=== PATIENT | male | born 1995 | race Caucasian/White ===

== ENCOUNTER 2020-05-10 13:36 | Emergency (ER) | payer OTHER ==
[2020-05-10 14:20] LABS: Absolute Lymphocytes (CBC) 1.7 K/uL (0.7-4.9); Basophils % 0.5 % (0-1.3); Hematocrit 42.6 % (39.6-49.0); Lymphocytes % 38.6 % (15.3-44.8); MPV 8.7 fL (7.6-11.3); RBC Red Blood Cell Count 4.78 M/uL (4.33-5.43)
[2020-05-10 14:21] LABS: Protime INR 1.1
[2020-05-10 14:38] LABS: ALT/SGPT 33 U/L (12-78); AST/SGOT 19 U/L (15-37); Albumin 4.2 g/dL (3.4-5.0); Alkaline Phosphatase 46 U/L (45-117); BUN Blood Urea Nitrogen 22 mg/dL (7-18); Bicarbonate 30 mmol/L (21-32); Bilirubin Direct 0.2 mg/dL (0-0.2); Bilirubin Total 0.6 mg/dL (0.2-1.0); Glucose Level 108 mg/dL (74-106); Potassium 3.5 mmol/L (3.5-5.1); Protein, Total 7.6 g/dL (6.4-8.2); Sodium Level 142 mmol/L (136-145)
[2020-05-10 14:57] LABS: Barbiturates NEGATIVE (NEGATIVE); Benzodiazepines POSITIVE (NEGATIVE); Cocaine NEGATIVE (NEGATIVE); METHAMPHETAM NEGATIVE (NEGATIVE); Methadone NEGATIVE (NEGATIVE); Opiates NEGATIVE (NEGATIVE); Phencyclidine NEGATIVE (NEGATIVE); THC Cannibis NEGATIVE (NEGATIVE)
[2020-05-10 15:27] LABS: Urine Blood NEGATIVE (NEG); Urine Glucose NEGATIVE (NEG); Urine Protein NEGATIVE (NEG); Urine pH 8.5 (5.0-7.0)
--- NOTE | 2020-05-10 18:58 | ER ---
Nurse's Notes [facility] Name: Praneeth Urbina Age: 24 yrs Sex: Male : 1995 Arrival Date: 05/10/2020 Time: 13:37 Bed 4 Private MD: Diagnosis: K2 and xanax overdose Presentation: 05/10 13:37 Chief complaint: EMS states: Inmate from [facility], reportedly ingested 10 Xanax and ph 1/2 oz of K2/synthetic marijuana , denies SI, reports that he took them because he got caught w/ them, BP 110/68, HR 94, T 97.8, pt drowsy upon arrival, denies nausea or pain. Coronavirus screen: Client denies travel out of the [place] in the last 14 days. At this time, the client does not indicate any symptoms associated with coronavirus-19. Ebola Screen: No symptoms or risks identified at this time. Initial Sepsis Screen: Does the patient meet any 2 criteria? No. Patient's initial sepsis screen is negative. Does the patient have a suspected source of infection? No. Patient's initial sepsis screen is negative. Risk Assessment: Do you want to hurt yourself or someone else? Patient reports no desire to harm self or others. Onset of symptoms. 13:37 Method Of Arrival: EMS: [facility] ph 13:37 Acuity: MERLE 2 ph Historical: - Allergies: 13:43 Iodine; tw2 - Home Meds: 13:43 None [Active]; tw2 - PMHx: 13:43 None; tw2 - PSHx: 13:43 None; tw2 - Immunization history:: Adult Immunizations. - Social history:: Smoking status: . Screenin:43 Abuse screen: Denies threats or abuse. Nutritional screening: No deficits noted. tw2 Tuberculosis screening: No symptoms or risk factors identified. Fall Risk None identified. Assessment: 13:35 General: Appears in no apparent distress. comfortable, slender, Behavior is calm, ph cooperative, appropriate for age, drowsy. Pain: Denies pain. Neuro: Level of Consciousness is awake, alert, obeys commands, Oriented to person, place, time, situation. Cardiovascular: Capillary refill < 3 seconds in bilateral fingers Patient's skin is warm and dry. Respiratory: Airway is patent Respiratory effort is even, unlabored. GI: Patient currently denies abdominal pain, nausea, vomiting. Derm: Skin is intact, is healthy with good turgor, Skin is pink, warm \T\ dry. Musculoskeletal: Circulation, motion, and sensation intact. Range of motion: intact in all extremities. 13:48 Reassessment: spoke with Poison control case# [id number], supportive care and monitor 4-6 tw2 hours or until back to baseline, standard overdose labs with kidney function, lft, ekg, and seizure precautions for the k2 ingestion, provider notified. 14:35 Reassessment: Patient appears in no apparent distress at this time. No changes from tw2 previously documented assessment. Patient and/or family updated on plan of care and expected duration. Pain level reassessed. 15:22 Reassessment: Patient appears in no apparent distress at this time. No changes from tw2 previously documented assessment. Patient and/or family updated on plan of care and expected duration. Pain level reassessed. 16:30 Reassessment: Patient appears in no apparent distress at this time. No changes from tw2 previously documented assessment. Patient and/or family updated on plan of care and expected duration. Pain level reassessed. 17:40 Reassessment: Patient appears in no apparent distress at this time. No changes from tw2 previously documented assessment. Patient and/or family updated on plan of care and expected duration. Pain level reassessed. 19:40 Reassessment: Patient appears in no apparent distress at this time. Patient and/or mg2 family updated on plan of care and expected duration. Pain level reassessed. Patient is alert, oriented x 3, equal unlabored respirations, skin warm/dry/pink. Vital Signs: 13:37 BP 111 / 64; Pulse 124; Resp 14; Temp 97.8; Pulse Ox 99% on R/A; Weight 54.43 kg; ph Height 5 ft. 8 in. (172.72 cm); Pain 0/10; 13:42 BP 111 / 64; Pulse 126; Resp 14; Temp 97.8(TE); Pulse Ox 99% on R/A; Weight 54.43 kg tw2 (R); Height 5 ft. 8 in. (172.72 cm); Pain 0/10; 14:35 BP 113 / 76; Pulse 91; Resp 17; Pulse Ox 98% on R/A; tw2 15:22 BP 103 / 59; Pulse 72; Resp 17; Pulse Ox 97% on R/A; tw2 16:30 BP 98 / 56; Pulse 73; Resp 12; Pulse Ox 95% on R/A; tw2 17:40 BP 95 / 54 Supine; Pulse 75; Resp 12; Pulse Ox 97% ; tw2 18:56 BP 90 / 56; Pulse 64; Resp 11; Pulse Ox 100% on R/A; tw2 19:40 BP 109 / 56; Pulse 68; Resp 18; Temp 98.2; Pulse Ox 96% on R/A; mg2 13:42 Body Mass Index 18.25 (54.43 kg, 172.72 cm) tw2 ED Course: 13:37 Patient arrived in ED. ph 13:37 Bed in low position. Side rails up X2. 2 [employer] security officers at bedside at this time. tw2 development trainer on. Pulse ox on. NIBP on. Warm blanket given. 13:40 [facility] De Leon [facility]C [facility]. kb 13:40 Abner Barr MD is Attending Physician. kb 13:41 Triage completed. ph 13:42 Arm band placed on. tw2 13:53 Maintain EMS IV. Dressing intact. Site clean \T\ dry. Gauge \T\ site: 20 g RIGHT AC. tw 2 14:06 Acetaminophen Sent. mh5 14:06 Basic Metabolic Panel Sent. mh5 14:07 CBC with Diff Sent. mh5 14:07 ETOH Level Sent. mh5 14:07 Hepatic Function Sent. mh5 14:07 PT-INR Sent. mh5 14:07 Ptt, Activated Sent. mh5 14:07 Salicylate Sent. mh5 14:07 Urine Drug Screen Sent. mh5 14:35 Luisa Bland, IRLANDA is Primary Nurse. tw2 14:41 Urine collected: clean catch specimen, clear, nicole colored, Legal drug screen obtained jp3 per protocol. Straight cath inserted, using sterile technique, 18 Fr. Specimen obtained. Returned clear yellow urine. Patient tolerated well. 17:08 EKG done, by ED staff, reviewed by Elda GARIBAY. [facility] 18:57 Report given to IRLANDA Davis and IRLANDA Overton. tw2 Administered Medications: No medications were administered Outcome: 18:57 Discharge ordered by . kb 19:49 Patient left the ED. mw2 Signatures: Elda De Leon, ANA-C ANA-Abbie Landa, RN RN Luisa Bland RN RN 2 Wilma De Souza [facility] [place] Acuna 2 Jarek Whitfield RN RN mg2 Poncho Sigala 3
--- NOTE | 2020-05-10 18:58 | EDPHYS ---
Physician Documentation [facility] Name: Praneeth Urbina Age: 24 yrs Sex: Male : 1995 Arrival Date: 05/10/2020 Time: 13:37 Bed 4 Private MD: ED Physician Abner Barr HPI: 05/10 17:50 This 24 yrs old Male presents to ER via EMS with complaints of Overdose. kb 17:50 The patient presents to the emergency department after a known overdose, a result of kb recreational substance abuse. Context: Method: the patient has a confirmed or suspected ingestion, Time: at 13:00, Extent: the OD/poisoning occurred at detention. Associated signs and symptoms: Pertinent positives: drowsy, Pertinent negatives: anxiety, apnea, auditory hallucinations, burning of skin, decreased level of consciousness, depression, diaphoresis, diarrhea, dizziness, incontinence, loss of consciousness, nausea, palpitations, shortness of breath, tearfulness, visual hallucinations, vomiting. Severity of symptoms: At their worst the symptoms were moderate in the emergency department the symptoms are unchanged. The patient has not experienced similar symptoms in the past. The patient has not recently seen a physician. Pt xanax and K2 today around 1300. Pt denies suicidal ideations. Pt drowsy, but awake, alert and oriented. Historical: - Allergies: 13:43 Iodine; tw2 - Home Meds: 13:43 None [Active]; tw2 - PMHx: 13:43 None; tw2 - PSHx: 13:43 None; tw2 - Immunization history:: Adult Immunizations. - Social history:: Smoking status: . ROS: 17:50 Constitutional: Negative for fever, chills, and weight loss, Cardiovascular: Negative kb for chest pain, palpitations, and edema, Respiratory: Negative for shortness of breath, cough, wheezing, and pleuritic chest pain, Abdomen/GI: Negative for abdominal pain, nausea, vomiting, diarrhea, and constipation, MS/Extremity: Negative for injury and deformity, Skin: Negative for injury, rash, and discoloration, Neuro: Negative for headache, weakness, numbness, tingling, and seizure. Exam: 17:50 Constitutional: This is a well developed, well nourished patient who is awake, alert, kb and in no acute distress. Head/Face: Normocephalic, atraumatic. Eyes: Pupils equal round and reactive to light, extra-ocular motions intact. Lids and lashes normal. Conjunctiva and sclera are non-icteric and not injected. Cornea within normal limits. Periorbital areas with no swelling, redness, or edema. Chest/axilla: Normal chest wall appearance and motion. Nontender with no deformity. No lesions are appreciated. Cardiovascular: Regular rate and rhythm with a normal S1 and S2. No gallops, murmurs, or rubs. Normal PMI, no JVD. No pulse deficits. Respiratory: Lungs have equal breath sounds bilaterally, clear to auscultation and percussion. No rales, rhonchi or wheezes noted. No increased work of breathing, no retractions or nasal flaring. Abdomen/GI: Soft, non-tender, with normal bowel sounds. No distension or tympany. No guarding or rebound. No evidence of tenderness throughout. Skin: Warm, dry with normal turgor. Normal color with no rashes, no lesions, and no evidence of cellulitis. MS/ Extremity: Pulses equal, no cyanosis. Neurovascular intact. Full, normal range of motion. Neuro: Awake and alert, GCS 15, oriented to person, place, time, and situation. Cranial nerves II-XII grossly intact. Motor strength 5/5 in all extremities. Sensory grossly intact. Cerebellar exam normal. Normal gait. Vital Signs: 13:37 BP 111 / 64; Pulse 124; Resp 14; Temp 97.8; Pulse Ox 99% on R/A; Weight 54.43 kg; ph Height 5 ft. 8 in. (172.72 cm); Pain 0/10; 13:42 BP 111 / 64; Pulse 126; Resp 14; Temp 97.8(TE); Pulse Ox 99% on R/A; Weight 54.43 kg tw2 (R); Height 5 ft. 8 in. (172.72 cm); Pain 0/10; 14:35 BP 113 / 76; Pulse 91; Resp 17; Pulse Ox 98% on R/A; tw2 15:22 BP 103 / 59; Pulse 72; Resp 17; Pulse Ox 97% on R/A; tw2 16:30 BP 98 / 56; Pulse 73; Resp 12; Pulse Ox 95% on R/A; tw2 17:40 BP 95 / 54 Supine; Pulse 75; Resp 12; Pulse Ox 97% ; tw2 18:56 BP 90 / 56; Pulse 64; Resp 11; Pulse Ox 100% on R/A; tw2 19:40 BP 109 / 56; Pulse 68; Resp 18; Temp 98.2; Pulse Ox 96% on R/A; mg2 13:42 Body Mass Index 18.25 (54.43 kg, 172.72 cm) tw2 MDM: 13:40 Patient medically screened. kb 14:51 Data reviewed: vital signs, nurses notes. Data interpreted: Pulse oximetry: on room air kb is 98 %. Interpretation: normal. 17:50 Counseling: I had a detailed discussion with the patient and/or guardian regarding: the kb historical points, exam findings, and any diagnostic results supporting the discharge/admit diagnosis, lab results, the need for outpatient follow up, a family practitioner, to return to the emergency department if symptoms worsen or persist or if there are any questions or concerns that arise at home. 17:53 ED course: Poison control recommended supportive treatment, toxic workup, and kb observation for 4-6 hours post ingestion.. 05/10 13:45 Order name: Acetaminophen; Complete Time: 14:56 kb 05/10 13:45 Order name: Basic Metabolic Panel; Complete Time: 14:56 kb 05/10 13:45 Order name: CBC with Diff; Complete Time: 14:27 kb 05/10 13:45 Order name: ETOH Level; Complete Time: 14:27 kb 05/10 13:45 Order name: Hepatic Function; Complete Time: 14:56 kb 05/10 13:45 Order name: PT-INR; Complete Time: 14:33 kb 05/10 13:45 Order name: Ptt, Activated; Complete Time: 14:33 kb 05/10 13:45 Order name: Salicylate; Complete Time: 14:56 kb 05/10 13:45 Order name: Urine Drug Screen; Complete Time: 14:59 kb 05/10 13:45 Order name: EKG; Complete Time: 13:47 kb 05/10 13:45 Order name: EKG - Nurse/Tech; Complete Time: 17:08 kb 05/10 13:45 Order name: IV Saline Lock; Complete Time: 14:07 kb 05/10 13:45 Order name: Labs collected and sent; Complete Time: 14:07 kb 05/10 14:46 Order name: Urine Dipstick--Ancillary (enter results); Complete Time: 15:35 em1 05/10 13:45 Order name: Urine Dipstick-Ancillary (obtain specimen); Complete Time: 14:42 kb Administered Medications: No medications were administered Disposition: 05/11 11:52 Co-signature as Attending Physician, Abner Barr MD I agree with the assessment and isamar plan of care. Disposition: 05/10/20 18:57 Discharged to Law Enforcement. Impression: K2 and xanax overdose. - Condition is Stable. - Discharge Instructions: Drug Overdose. - Medication Reconciliation Form, Thank You Letter, Antibiotic Education, Prescription Opioid Use form. - Follow up: Emergency Department; When: As needed; Reason: Worsening of condition. Follow up: Private Physician; When: 2 - 3 days; Reason: Recheck today's complaints, Continuance of care, Re-evaluation by your physician. Signatures: Dispatcher [employer] EDHI Elda De Leon, ANA-C ANA-Abner Berkowitz MD MD cha Wise, Tara, RN RN tw2 [place] Acuna mw2 Corrections: (The following items were deleted from the chart) 05/10 18:57 18:57 05/10/2020 18:57 Discharged to Home. Impression: K2 and xanax overdose. Condition kb is Stable. Forms are Medication Reconciliation Form, Thank You Letter, Antibiotic Education, Prescription Opioid Use. Follow up: Emergency Department; When: As needed; Reason: Worsening of condition. Follow up: Private Physician; When: 2 - 3 days; Reason: Recheck today's complaints, Continuance of care, Re-evaluation by your physician. kb 19:49 18:57 05/10/2020 18:57 Discharged to Law Enforcement. Impression: K2 and xanax mw2 overdose. Condition is Stable. Discharge Instructions: Drug Overdose. Forms are Medication Reconciliation Form, Thank You Letter, Antibiotic Education, Prescription Opioid Use. Follow up: Emergency Department; When: As needed; Reason: Worsening of condition. Follow up: Private Physician; When: 2 - 3 days; Reason: Recheck today's complaints, Continuance of care, Re-evaluation by your physician. kb
--- NOTE | 2020-05-11 19:16 | EKG ---
Test Date: 2020-05-10 Test Time: 17:04:52 Airplane Pilot Chief: LOGAN MEASUREMENT RESULTS: Intervals: Rate: 78 MI: 148 QRSD: 90 QT: 372 QTc: 424 [place]: P: 53 MI: 148 QRS: 85 T: 73 INTERPRETIVE STATEMENTS: Normal sinus rhythm Normal ECG No previous ECG available for comparison Electronically Signed On 05-11-20 19:12:53 CATERING ASSISTANT by Fredrick Valdez
[2020-05-12 19:13] VITALS: TEMP 97.8
[2020-05-12 19:20] VITALS: BP 90/56; O2SAT 100
== END 2020-05-10 19:49 ==
LOC: ER 13:36
DX: T42.4X1A Poisoning by benzodiazepines, accidental (unintentional), initial encounter (principal); T40.7X1A Poisoning by cannabis (derivatives), accidental (unintentional), initial encounter; R40.0 Somnolence; Z91.048 Other nonmedicinal substance allergy status
CPT/HCPCS: 36415; 51702; 80048; 80076; 80307; 80320; 80329; 81003; 85025; 85610; 85730; 93005; 99284

== ENCOUNTER 2020-05-11 23:53 | Emergency (ER) | payer OTHER ==
[2020-05-12] MEDS ORDERED: NA CHLORIDE 0.9% 1,000 ML ONE (01:02)
[2020-05-12 01:12] LABS: Absolute Lymphocytes (CBC) 2.7 K/uL (0.7-4.9); Basophils % 0.5 % (0-1.3); Hematocrit 45.3 % (39.6-49.0); Lymphocytes % 48.2 % (15.3-44.8); MPV 9.4 fL (7.6-11.3); RBC Red Blood Cell Count 5.07 M/uL (4.33-5.43)
[2020-05-12 01:28] LABS: ALT/SGPT 31 U/L (12-78); AST/SGOT 13 U/L (15-37); Albumin 4.2 g/dL (3.4-5.0); Alkaline Phosphatase 53 U/L (45-117); BUN Blood Urea Nitrogen 17 mg/dL (7-18); Bicarbonate 29 mmol/L (21-32); Bilirubin Direct 0.2 mg/dL (0-0.2); Bilirubin Total 0.5 mg/dL (0.2-1.0); Glucose Level 92 mg/dL (74-106); Lipase 121 U/L (73-393); Potassium 3.7 mmol/L (3.5-5.1); Sodium Level 144 mmol/L (136-145)
[2020-05-12 02:05] LABS: Urine Blood NEGATIVE (NEG); Urine Glucose NEGATIVE (NEG); Urine Protein NEGATIVE (NEG); Urine Specific Gravity 1.025 (1.005-1.030)
--- NOTE | 2020-05-12 02:15 | EDPHYS ---
Physician Documentation [facility] Name: Praneeth Urbina Age: 24 yrs Sex: Male : 1995 Arrival Date: 05/11/2020 Time: 23:58 Bed 7 Private MD: ED Physician Jarred Malik HPI: 05/12 00:47 This 24 yrs old Male presents to ER via Other with complaints of Left Side mh7 Pain, Vomiting - Resolved. 00:47 The patient presents with abdominal pain in the left lower quadrant. Onset: The mh7 symptoms/episode began/occurred yesterday. The symptoms radiate to the left flank. Associated signs and symptoms: Pertinent positives: nausea and vomiting, Pertinent negatives: anorexia, blood in stools, chest pain, constipation, diarrhea, dysuria, fever, headache, hematuria, palpitations, shortness of breath, testicular pain, vomiting blood. The symptoms are described as intermittent, vague, waxing/waning. Modifying factors: The symptoms are alleviated by nothing, the symptoms are aggravated by nothing. Severity of pain: At its worst the pain was moderate yesterday, in the emergency department the pain has improved moderately. The patient has been recently seen at the [facility] Emergency Department, yesterday. Historical: - Allergies: 05/11 23:58 Iodine; sg - PSHx: 23:58 None; sg - Immunization history:: Adult Immunizations up to date. - Social history:: Smoking status: Patient reports the use of cigarette tobacco products, Patient uses street drugs, K2, and xanax. ROS: 05/12 00:47 Constitutional: Negative for fever, chills, and weight loss, Eyes: Negative for injury, mh7 pain, redness, and discharge, ENT: Negative for injury, pain, and discharge, Neck: Negative for injury, pain, and swelling, Cardiovascular: Negative for chest pain, palpitations, and edema, Respiratory: Negative for shortness of breath, cough, wheezing, and pleuritic chest pain, : Negative for injury, bleeding, discharge, and swelling, MS/Extremity: Negative for injury and deformity, Skin: Negative for injury, rash, and discoloration, Neuro: Negative for headache, weakness, numbness, tingling, and seizure, Psych: Negative for depression, anxiety, suicide ideation, homicidal ideation, and hallucinations, Allergy/Immunology: Negative for hives, rash, and allergies, Endocrine: Negative for neck swelling, polydipsia, polyuria, polyphagia, and marked weight changes, Hematologic/Lymphatic: Negative for swollen nodes, abnormal bleeding, and unusual bruising. Exam: 00:47 Constitutional: This is a well developed, well nourished patient who is awake, alert, mh7 and in no acute distress. Head/Face: Normocephalic, atraumatic. Eyes: Pupils equal round and reactive to light, extra-ocular motions intact. Lids and lashes normal. Conjunctiva and sclera are non-icteric and not injected. Cornea within normal limits. Periorbital areas with no swelling, redness, or edema. Neck: Trachea midline, no thyromegaly or masses palpated, and no cervical lymphadenopathy. Supple, full range of motion without nuchal rigidity, or vertebral point tenderness. No Meningismus. Chest/axilla: Normal chest wall appearance and motion. Nontender with no deformity. No lesions are appreciated. Cardiovascular: Regular rate and rhythm with a normal S1 and S2. No gallops, murmurs, or rubs. Normal PMI, no JVD. No pulse deficits. Respiratory: Lungs have equal breath sounds bilaterally, clear to auscultation and percussion. No rales, rhonchi or wheezes noted. No increased work of breathing, no retractions or nasal flaring. 00:47 Back: No spinal tenderness. No costovertebral tenderness. Full range of motion. Skin: Warm, dry with normal turgor. Normal color with no rashes, no lesions, and no evidence of cellulitis. MS/ Extremity: Pulses equal, no cyanosis. Neurovascular intact. Full, normal range of motion. Neuro: Awake and alert, GCS 15, oriented to person, place, time, and situation. Cranial nerves II-XII grossly intact. Motor strength 5/5 in all extremities. Sensory grossly intact. Cerebellar exam normal. Normal gait. Psych: Awake, alert, with orientation to person, place and time. Behavior, mood, and affect are within normal limits. 00:47 Abdomen/GI: Inspection: abdomen appears normal, Bowel sounds: normal, Palpation: mild abdominal tenderness, in the posterior aspect of left lateral abdomen and left lower quadrant, Rectal exam: the exam is deferred, because of patient request, Indicators: McBurney's point is not tender, Nguyen's sign is negative, Rovsing's sign is negative, Obturator sign is negative, Psoas sign is negative, Liver: no appreciated palpable abnormalities, Hernia: not appreciated. Vital Signs: 00:01 BP 126 / 71; Pulse 59; Resp 16; Temp 98; Pulse Ox 100% ; Weight 61.23 kg; Height 5 ft. rv 7 in. (170.18 cm); Pain 0/10; 01:30 BP 121 / 80; Pulse 61; Resp 16; Pulse Ox 100% on R/A; rv 02:00 BP 132 / 74; Pulse 59; Resp 16; Pulse Ox 100% on R/A; rv 02:30 BP 132 / 69; Pulse 65; Resp 16; Temp 98; Pulse Ox 100% on R/A; rv 00:01 Body Mass Index 21.14 (61.23 kg, 170.18 cm) rv MDM: 02:11 Differential diagnosis: bowel obstruction, non-specific abd pain, Pyelonephritis, mh7 Ureterolithiasis, urinary tract infection. Data reviewed: vital signs, nurses notes, old medical records, lab test result(s), CBC, electrolytes, urinalysis, radiologic studies, CT scan. Data interpreted: Pulse oximetry: on room air is 100 %. Interpretation: normal. Counseling: I had a detailed discussion with the patient and/or guardian regarding: the historical points, exam findings, and any diagnostic results supporting the discharge/admit diagnosis, lab results, radiology results, the need for outpatient follow up, to return to the emergency department if symptoms worsen or persist or if there are any questions or concerns that arise at home. Response to treatment: the patient's symptoms have resolved after treatment, the patient's blood pressure is in an acceptable range, mental status has returned to baseline, the patient no longer shows bradycardia, the patient is not short of breath, the patient is not tachycardic, the patient's pain is gone, the patient's temperature has normalized. 02:14 Patient medically screened. [facility] 05/12 00:46 Order name: Basic Metabolic Panel; Complete Time: 01:35 [facility] 05/12 00:46 Order name: CBC with Diff; Complete Time: 01:21 [facility] 05/12 00:46 Order name: Hepatic Function; Complete Time: 01:35 [facility] 05/12 00:46 Order name: Lipase; Complete Time: 01:35 [facility] 05/12 00:46 Order name: CT Stone Protocol [facility] 05/12 01:03 Order name: Urine Dipstick--Ancillary (enter results); Complete Time: 02:09 [facility] 05/12 00:46 Order name: IV Saline Lock; Complete Time: 01:00 [facility] 05/12 00:46 Order name: Labs collected and sent; Complete Time: 01: [facility] 05/12 00:46 Order name: Urine Dipstick-Ancillary (obtain specimen); Complete Time: 01:00 [facility] Administered Medications: 01:00 Drug: NS 0.9% 1000 ml Route: IV; Rate: 1000 ml; Site: left forearm; rr5 02:36 Follow up: IV Status: Completed infusion; IV Intake: 1000ml rv Disposition: 05/12/20 02:14 Discharged to Home. Impression: Lower abdominal pain, unspecified, Vomiting, unspecified, Constipation. - Condition is Stable. - Discharge Instructions: Abdominal Pain, Adult, Nausea and Vomiting, Adult, Constipation, Adult, [id number]. - Medication Reconciliation Form, Thank You Letter, Antibiotic Education, Prescription Opioid Use form. - Follow up: Private Physician; When: 1 - 2 days; Reason: Worsening of condition, Recheck today's complaints, Continuance of care, Re-evaluation by your physician. - Problem is new. - Symptoms are resolved. Signatures: Dispatcher [employer] EDMS Aiden Florentino RN RN Bennie Souza RN RN rv Roque, Raymond, RN RN rr5 Jarred Malik MD MD 7 Corrections: (The following items were deleted from the chart) 02:15 02:14 05/12/2020 02:14 Discharged to Home. Impression: Lower abdominal pain, mh7 unspecified; Vomiting, unspecified. Condition is Stable. Forms are Medication Reconciliation Form, Thank You Letter, Antibiotic Education, Prescription Opioid Use. Follow up: Private Physician; When: 1 - 2 days; Reason: Worsening of condition, Recheck today's complaints, Continuance of care, Re-evaluation by your physician. Problem is new. Symptoms are resolved. 7 02:36 02:15 05/12/2020 02:14 Discharged to Home. Impression: Lower abdominal pain, rv unspecified; Vomiting, unspecified; Constipation. Condition is Stable. Discharge Instructions: Abdominal Pain, Adult, Nausea and Vomiting, Adult, Constipation, Adult, [id number]. Forms are Medication Reconciliation Form, Thank You Letter, Antibiotic Education, Prescription Opioid Use. Follow up: Private Physician; When: 1 - 2 days; Reason: Worsening of condition, Recheck today's complaints, Continuance of care, Re-evaluation by your physician. Problem is new. Symptoms are resolved. mh7
--- NOTE | 2020-05-12 02:15 | ER ---
Nurse's Notes [facility] Name: Praneeth Urbina Age: 24 yrs Sex: Male : 1995 Arrival Date: 05/11/2020 Time: 23:58 Bed 7 Private MD: Diagnosis: Lower abdominal pain, unspecified;Vomiting, unspecified;Constipation Presentation: 05/12 00:01 Chief complaint: Patient states: I WAS SICK EARLIER IN THE DAY. I'VE BEEN THROWING UP rv BECAUSE OF THE PAIN ON MY LEFT SIDE. PATIENT WAS SEEN HERE YESTERDAY FOR OVERDOSE AND WAS DISCHARGED. Coronavirus screen: Client denies travel out of the [place] in the last 14 days. Ebola Screen: No symptoms or risks identified at this time. Initial Sepsis Screen: Does the patient meet any 2 criteria? No. Patient's initial sepsis screen is negative. Does the patient have a suspected source of infection? No. Patient's initial sepsis screen is negative. Risk Assessment: Do you want to hurt yourself or someone else? Patient reports no desire to harm self or others. Onset of symptoms is unknown. 00:01 Method Of Arrival: Other rv 00:01 Acuity: MERLE 5 rv 01:07 Acuity: MERLE 3 rv Triage Assessment: 00:01 General: Appears comfortable, Behavior is calm, cooperative. Pain: Denies pain. EENT: rv No signs and/or symptoms were reported regarding the EENT system. Neuro: Level of Consciousness is awake, alert, obeys commands, Oriented to person, place, time, situation. Cardiovascular: Patient's skin is warm and dry. Respiratory: Airway is patent Respiratory effort is even, unlabored. GI: No signs and/or symptoms were reported involving the gastrointestinal system. Patient currently denies pain, AT THE MOMENT. Musculoskeletal: Denies PAIN AT THE MOMENT. Historical: - Allergies: 05/11 23:58 Iodine; sg - PSHx: 23:58 None; sg - Immunization history:: Adult Immunizations up to date. - Social history:: Smoking status: Patient reports the use of cigarette tobacco products, Patient uses street drugs, K2, and xanax. Screenin/17 00:05 Abuse screen: Denies threats or abuse. Denies injuries from another. Nutritional rv screening: No deficits noted. Tuberculosis screening: No symptoms or risk factors identified. Fall Risk None identified. Vital Signs: 00:01 BP 126 / 71; Pulse 59; Resp 16; Temp 98; Pulse Ox 100% ; Weight 61.23 kg; Height 5 ft. rv 7 in. (170.18 cm); Pain 0/10; 01:30 BP 121 / 80; Pulse 61; Resp 16; Pulse Ox 100% on R/A; rv 02:00 BP 132 / 74; Pulse 59; Resp 16; Pulse Ox 100% on R/A; rv 02:30 BP 132 / 69; Pulse 65; Resp 16; Temp 98; Pulse Ox 100% on R/A; rv 00:01 Body Mass Index 21.14 (61.23 kg, 170.18 cm) rv ED Course: 05/11 23:58 Patient arrived in ED. 05/12 00:01 Bennie Souza, RN is Primary Nurse. rv 00:04 Triage completed. rv 00:05 Arm band placed on left wrist. Patient placed in the treatment room, on a stretcher, rv Patient notified of wait time. 00:05 Patient has correct armband on for positive identification. Pulse ox on. NIBP on. rv 00:21 Jarred Malik MD is Attending Physician. mh7 00:55 Urine collected: clean catch specimen, clear. rr5 01:01 Inserted saline lock: 20 gauge in left forearm, using aseptic technique. Blood rr5 collected. 01:51 CT Stone Protocol In Process Unspecified. EDMS 02:35 No provider procedures requiring assistance completed. IV discontinued, intact, rv bleeding controlled, No redness/swelling at site. Pressure dressing applied. Administered Medications: 01:00 Drug: NS 0.9% 1000 ml Route: IV; Rate: 1000 ml; Site: left forearm; rr5 02:36 Follow up: IV Status: Completed infusion; IV Intake: 1000ml rv Intake: 02:36 IV: 1000ml; Total: 1000ml. rv Outcome: 02:14 Discharge ordered by . 7 02:35 Discharged to WITH ACTIVATED SLUDGE ATTENDANT rv 02:35 Condition: good 02:35 Discharge instructions given to patient, Instructed on discharge instructions, follow up and referral plans. Demonstrated understanding of instructions, follow-up care. 02:36 Patient left the ED. rv Signatures: Dispatcher [employer] EDMS Aiden Florentino, IRLANDA RN Bennie Souza, RN RN rv Tian Middleton RN RN rr5 Jarred Malik MD MD 7
--- NOTE | 2020-05-12 11:13 | RAD REPORT ---
EXAM DESCRIPTION: CT Abdomen and Pelvis Without Intravenous Contrast CLINICAL HISTORY: The patient is 24 years old and is Male; Abd pain;Flank pain TECHNIQUE: Axial computed tomography images of the abdomen and pelvis without intravenous contrast. Sagittal and coronal reformatted images were created and reviewed. This CT exam was performed usi ng one or more of the following dose reduction techniques: automated exposure control, adjustment o f the mA and/or kV according to patient size, and/or use of iterative reconstruction technique. COMPARISON: No relevant prior studies available. FINDINGS: LUNG BASES: Unremarkable. No mass. No consolidation. ABDOMEN: LIVER: Homogeneous without focal mass. GALLBLADDER AND BILE DUCTS: No calcified stones. No ductal dilation. PANCREAS: Unremarkable. No ductal dilation. SPLEEN: Unremarkable. ADRENALS: Unremarkable. No mass. KIDNEYS AND URETERS: Right intrarenal calcifications are present. Mild prominence of the proxima l renal collecting systems bilaterally is noted. The ureters are normal in caliber. No obstructing re nal or ureteral calculus is seen. STOMACH AND BOWEL: The stomach is minimally distended. The small bowel is relatively normal in c aliber. A moderate amount of stool is present throughout colon. There is no mucosal thickening or isabel dence of bowel obstruction. PELVIS: APPENDIX: No findings to suggest acute appendicitis. BLADDER: The bladder is moderately distended. No stones. REPRODUCTIVE: Calcifications are present within the prostate. ABDOMEN and PELVIS: INTRAPERITONEAL SPACE: Unremarkable. No free air. No significant fluid collection. BONES/JOINTS: No acute fracture. SOFT TISSUES: The soft tissues are normal. VASCULATURE: Unremarkable. No abdominal aortic aneurysm. LYMPH NODES: Unremarkable. No enlarged lymph nodes. IMPRESSION: 1. Mild prominence of the proximal renal collecting systems. No obstructing renal or u reteral calculus. 2. Right nephrolithiasis without obstruction. 3. Moderate stool burden without obstruction. Electronically signed by: Rosario Valenzuela MD 05/12/2020 2:02 AM SOURCING INTERN Due to temporary technical issues with the PACS/Fluency reporting system, reports are being signed by the in house radiologist without review as a courtesy to ensure prompt reporting. The interpreting r adiologist is fully responsible for the content of the report.
[2020-05-13 09:32] VITALS: TEMP 98; O2SAT 100
[2020-05-13 09:36] VITALS: BP 132/69
== END 2020-05-12 02:36 | disposition home or self-care (01) ==
LOC: ER 23:53
DX: K59.00 Constipation, unspecified (principal); R11.10 Vomiting, unspecified; Z72.0 Tobacco use; Z91.048 Other nonmedicinal substance allergy status
CPT/HCPCS: 36415; 74176; 76377; 80048; 80076; 81003; 83690; 85025; 96360; 96361; 99284; J7030

== ENCOUNTER 2020-07-22 13:08 | Emergency (ER) | payer OTHER ==
[2020-07-22 14:00] LABS: Urine Blood NEGATIVE (NEG); Urine Glucose NEGATIVE (NEG); Urine Protein NEGATIVE (NEG); Urine Specific Gravity 1.015 (1.005-1.030); Urine pH 7.5 (5.0-7.0)
[2020-07-22 14:05] LABS: Absolute Lymphocytes (CBC) 1.7 K/uL (0.7-4.9); Basophils % 0.9 % (0-1.3); Hematocrit 41.5 % (39.6-49.0); Lymphocytes % 50.2 % (15.3-44.8); MPV 9.7 fL (7.6-11.3); RBC Red Blood Cell Count 4.62 M/uL (4.33-5.43)
[2020-07-22 14:25] LABS: Barbiturates NEGATIVE (NEGATIVE); Benzodiazepines NEGATIVE (NEGATIVE); Cocaine NEGATIVE (NEGATIVE); METHAMPHETAM NEGATIVE (NEGATIVE); Methadone NEGATIVE (NEGATIVE); Opiates NEGATIVE (NEGATIVE); Phencyclidine NEGATIVE (NEGATIVE); THC Cannibis NEGATIVE (NEGATIVE)
[2020-07-22 14:25] LABS: Protime INR 1.08
[2020-07-22 14:36] LABS: ALT/SGPT 38 U/L (12-78); AST/SGOT 14 U/L (15-37); Albumin 3.9 g/dL (3.4-5.0); Alkaline Phosphatase 54 U/L (45-117); BUN Blood Urea Nitrogen 17 mg/dL (7-18); Bicarbonate 28 mmol/L (21-32); Bilirubin Direct 0.2 mg/dL (0-0.2); Bilirubin Total 0.6 mg/dL (0.2-1.0); Glucose Level 82 mg/dL (74-106); Protein, Total 7.4 g/dL (6.4-8.2); Sodium Level 141 mmol/L (136-145)
--- NOTE | 2020-07-22 17:36 | EDPHYS ---
Physician Documentation [facility] Name: Praneeth Urbina Age: 24 yrs Sex: Male : 1995 Arrival Date: 07/22/2020 Time: 13:08 Bed 3 Private MD: ED Physician Cruz Coffey HPI: 07/22 13:00 This 24 yrs old Male presents to ER via EMS with complaints of Overdose. jmm 13:00 The patient presents to the emergency department k2 synthetic marijuana. jmm 14:21 Context: Time: at 12:00. Associated signs and symptoms: The patient has no apparent jmm associated signs or symptoms. Patient states he attempted to overdose on K2. Patient denies chest pain, shortness of breath, abdominal pain, nausea or vomiting. . Historical: - Allergies: 13:20 Iodine; jl7 - Home Meds: 13:20 aripiprazole 10 mg oral tab 1 tab once daily [Active]; jl7 - PMHx: 13:20 Bipolar disorder; jl7 - Immunization history:: Adult Immunizations up to date. - Social history:: Smoking status: unknown. ROS: 14:21 Constitutional: Negative for fever, chills, and weight loss, Cardiovascular: Negative jmm for chest pain, palpitations, and edema, Respiratory: Negative for shortness of breath, cough, wheezing, and pleuritic chest pain, Neuro: Negative for headache, weakness, numbness, tingling, and seizure. 14:21 All other systems are negative. Exam: 14:21 Constitutional: This is a well developed, well nourished patient who is awake, alert, jmm and in no acute distress. Head/Face: atraumatic. Eyes: EOMI, no conjunctival erythema appreciated ENT: Moist Mucus Membranes Neck: Trachea midline, Supple Chest/axilla: Normal chest wall appearance and motion. Cardiovascular: Regular rate and rhythm. No edema appreciated Respiratory: Normal respirations, no respiratory distress appreciated Abdomen/GI: Non distended, soft Back: Normal ROM Skin: General appearance color normal MS/ Extremity: Moves all extremities, no obvious deformities appreciated, no edema noted to the lower extremities Neuro: Awake and alert, normal gait Psych: Behavior is normal, Mood is normal, Patient is cooperative and pleasant Vital Signs: 13:14 BP 110 / 74; Pulse 65; Resp 12; Temp 99; Pulse Ox 100% ; Weight 58.97 kg; Height 5 ft. jl7 10 in. (177.80 cm); Pain 5/10; 13:50 BP 107 / 67; Pulse 62; Resp 13; Pulse Ox 100% ; jl7 14:51 BP 114 / 70; Pulse 67; Resp 13; Pulse Ox 100% ; jl7 15:52 BP 111 / 68; Pulse 60; Resp 14; Pulse Ox 100% ; jl7 16:33 BP 110 / 64; Pulse 57; Resp 14; Pulse Ox 99% on R/A; mt 17:00 BP 112 / 67; Pulse 71; Resp 15; Temp 99.1; Pulse Ox 100% ; jl7 17:49 BP 115 / 64; Pulse 68; Resp 17; Pulse Ox 100% ; jl7 13:14 Body Mass Index 18.65 (58.97 kg, 177.80 cm) [facility] MDM: 13:14 Patient medically screened. [facility] 17:33 Data reviewed: vital signs, nurses notes. Counseling: I had a detailed discussion with vaishnavi the patient and/or guardian regarding: the historical points, exam findings, and any diagnostic results supporting the discharge/admit diagnosis, lab results, the need for outpatient follow up, to return to the emergency department if symptoms worsen or persist or if there are any questions or concerns that arise at home. ED course: Poison control recommended 4 hr obs with 4 hr repeat acetaminophen salicylates. Labs unremarkable. VS normal. Patient will be placed evaluated by psychiatry due to Suicide attempt. . 07/22 13:15 Order name: Acetaminophen [facility] 07/22 13:15 Order name: Basic Metabolic Panel [facility] 07/22 13:15 Order name: CBC with Diff [facility] 07/22 13:15 Order name: ETOH Level [facility] 07/22 13:15 Order name: Hepatic Function [facility] 07/22 13:15 Order name: PT-INR; Complete Time: 14:34 [facility] 07/22 13:15 Order name: Ptt, Activated; Complete Time: 14:34 [facility] 07/22 13:15 Order name: Salicylate; Complete Time: 14:34 [facility] 07/22 13:15 Order name: Urine Drug Screen; Complete Time: 14:34 [facility] 07/22 13:16 Order name: Acetaminophen Level; Complete Time: 15:56 [facility] 07/22 13:16 Order name: Basic Metabolic Panel; Complete Time: 15:56 [facility] 07/22 13:16 Order name: CBC with Automated Diff; Complete Time: 14:14 [facility] 07/22 13:16 Order name: Alcohol Serum/Plasma; Complete Time: 14:34 [facility] 07/22 13:16 Order name: Liver (Hepatic) Function; Complete Time: 15:56 [facility] 07/22 13:15 Order name: EKG; Complete Time: 13:16 [facility] 07/22 13:15 Order name: EKG - Nurse/Tech; Complete Time: 13:41 [facility] 07/22 13:15 Order name: IV Saline Lock; Complete Time: 13:41 [facility] 07/22 13:15 Order name: Labs collected and sent; Complete Time: 13:41 [facility] 07/22 13:15 Order name: Urine Dipstick-Ancillary (obtain specimen); Complete Time: 13:51 [facility] 07/22 13:51 Order name: Urine Dipstick--Ancillary (enter results); Complete Time: 14:14 07/22 15:56 Order name: Acetaminophen; Complete Time: 16:46 [facility] 07/22 15:56 Order name: Salicylate; Complete Time: 17:16 [facility] Administered Medications: No medications were administered Disposition: 07/22/20 17:36 Discharged to Home. Impression: Suicide attempt, Intentional Overdose Attempt. - Condition is Stable. - Discharge Instructions: Suicidal Feelings: How to Help Yourself, Drug Overdose. - Medication Reconciliation Form, Thank You Letter, Antibiotic Education, Prescription Opioid Use form. - Follow up: Private Physician; When: As needed; Reason: Recheck today's complaints, Continuance of care, Re-evaluation by your physician. Addendum: 07/25/2020 05:05 Co-signature as Attending Physician, Cruz Coffey MD I agree with the assessment and k dr plan of care. Signatures: Dispatcher [employer] Cruz Ybarra MD MD kdr Mickail, Joel, PA PA Betsy Pack RN RN jl7 Corrections: (The following items were deleted from the chart) 07/22 18:00 17:36 07/22/2020 17:36 Discharged to Home. Impression: Suicide attempt; Intentional jl7 Overdose Attempt. Condition is Stable. Forms are Medication Reconciliation Form, Thank You Letter, Antibiotic Education, Prescription Opioid Use. Follow up: Private Physician; When: As needed; Reason: Recheck today's complaints, Continuance of care, Re-evaluation by your physician. vaishnavi
--- NOTE | 2020-07-22 17:36 | ER ---
Nurse's Notes [facility] Name: Praneeth Urbina Age: 24 yrs Sex: Male : 1995 Arrival Date: 07/22/2020 Time: 13:08 Bed 3 Private MD: Diagnosis: Suicide attempt;Intentional Overdose Attempt Presentation: 07/22 13:14 Chief complaint: EMS states: Pt took 30 pills, unknown medication, pt refusing to talk jl7 with guards in the room. Pt reports mild abdominal pain. Coronavirus screen: Client denies travel out of the [place] in the last 14 days. At this time, the client does not indicate any symptoms associated with coronavirus-19. Ebola Screen: No symptoms or risks identified at this time. Initial Sepsis Screen: Does the patient meet any 2 criteria? No. Patient's initial sepsis screen is negative. Does the patient have a suspected source of infection? No. Patient's initial sepsis screen is negative. Risk Assessment: Do you want to hurt yourself or someone else? Patient reports no desire to harm self or others. Onset of symptoms was July 22, 2020 at 12:00. Care prior to arrival: Medication(s) given: Normal saline infusion, 200 ml IV initiated. 18 GA, in the left antecubital area. 13:14 Method Of Arrival: EMS: [place] [id number] 13:14 Acuity: MERLE 2 jl7 Triage Assessment: 13:20 General: Appears in no apparent distress. uncomfortable, Behavior is calm, cooperative, jl7 appropriate for age. Pain: Complains of pain in left upper quadrant Pain does not radiate. Pain currently is 5 out of 10 on a pain scale. Quality of pain is described as aching, Pain began 30 min ago. Is continuous. Neuro: Level of Consciousness is awake, alert, obeys commands, Oriented to person, place, time, situation, Pupils are PERRLA. Cardiovascular: Patient's skin is warm and dry. Respiratory: Airway is patent Respiratory effort is even, unlabored, Respiratory pattern is regular, symmetrical. GI: Reports upper abdominal pain. Derm: Skin is pink, warm \\T\\ dry. Historical: - Allergies: 13:20 Iodine; jl7 - Home Meds: 13:20 aripiprazole 10 mg oral tab 1 tab once daily [Active]; jl7 - PMHx: 13:20 Bipolar disorder; jl7 - Immunization history:: Adult Immunizations up to date. - Social history:: Smoking status: unknown. Screenin:10 Abuse screen: Denies threats or abuse. Denies injuries from another. Nutritional jl7 screening: No deficits noted. Tuberculosis screening: No symptoms or risk factors identified. Fall Risk IV access (20 points). Total Millard Fall Scale indicates No Risk (0-24 pts). Assessment: 13:10 General: See triage assessment. [facility] 13:45 Reassessment: Pt wrote down that he took K2 laced pills, poison control notified and 7 recommends watch for hyperthermia and agitation, provide supportive care for mild symptoms and benzodiazepines for moderate symptoms of agitation, check Tylenol and salicylate labs 4 hours post ingestion. 14:40 Reassessment: Pt requesting something to eat, ERP notified and pt provided with 7 sandwich, juice and chips. 15:53 Reassessment: Patient appears in no apparent distress at this time. Patient and/or [facility] family updated on plan of care and expected duration. Pain level reassessed. Patient is alert, oriented x 3, equal unlabored respirations, skin warm/dry/pink. Patient denies pain at this time. 17:00 Reassessment: Patient appears in no apparent distress at this time. No changes from jl7 previously documented assessment. Patient and/or family updated on plan of care and expected duration. Pain level reassessed. Patient is alert, oriented x 3, equal unlabored respirations, skin warm/dry/pink. Overdose: 13:10 [place] Suicide Severity Screening: "In the past month, have you wished you were jl7 or wished you could go to sleep and not wake up?" Patient responds "yes." "In the past month, have you actually had any thoughts of killing yourself?" Patient responds "yes." Additional suicide screening to be documented on paper forms. "In your lifetime, have you ever done anything, started to do anything, or prepared to do anything to end your life?" Patient responds "yes." Patient reports suicidal intent within 3 past months. Patient took K2 laced pills x 30. Overdose occurred 30 minutes to 1 hour ago. Vital Signs: 13:14 BP 110 / 74; Pulse 65; Resp 12; Temp 99; Pulse Ox 100% ; Weight 58.97 kg; Height 5 ft. jl7 10 in. (177.80 cm); Pain 5/10; 13:50 BP 107 / 67; Pulse 62; Resp 13; Pulse Ox 100% ; jl7 14:51 BP 114 / 70; Pulse 67; Resp 13; Pulse Ox 100% ; jl7 15:52 BP 111 / 68; Pulse 60; Resp 14; Pulse Ox 100% ; jl7 16:33 BP 110 / 64; Pulse 57; Resp 14; Pulse Ox 99% on R/A; mt 17:00 BP 112 / 67; Pulse 71; Resp 15; Temp 99.1; Pulse Ox 100% ; jl7 17:49 BP 115 / 64; Pulse 68; Resp 17; Pulse Ox 100% ; jl7 13:14 Body Mass Index 18.65 (58.97 kg, 177.80 cm) jl7 ED Course: 13:08 Patient arrived in ED. ds1 13:09 Oscar Mccormick PA is PHCP. vaishnavi 13:09 Cruz Coffey MD is Attending Physician. [facility] 13:10 Patient has correct armband on for positive identification. Bed in low position. Call [facility] light in reach. Side rails up X2. Security at bedside. telemetry monitor on. Pulse ox on. NIBP on. 13:14 Betsy Collier RN is Primary Nurse. jl7 13:19 Triage completed. jl7 13:20 Arm band placed on right wrist. jl7 13:30 Initial lab(s) drawn, by me, sent to lab. Maintain EMS IV. Dressing intact. Good blood jl7 return noted. Site clean \\T\\ dry. Gauge \\T\\ site: 18 left AC. 16:06 Repeat lab(s) drawn. by me, sent to lab. jl7 17:49 No provider procedures requiring assistance completed. IV discontinued, intact, jl7 bleeding controlled, No redness/swelling at site. Pressure dressing applied. Administered Medications: No medications were administered Outcome: 17:36 Discharge ordered by . vaishnavi 17:49 Discharged to Law Enforcement jl7 17:49 Condition: stable 17:49 Discharge instructions given to patient, police, Instructed on discharge instructions, follow up and referral plans. Demonstrated understanding of instructions, follow-up care. 18:00 Patient left the ED. jl Signatures: Oscar Mccormick PA PA jmm [place], Demi ds1 Betsy Collier, RN RN jl7 Janice Esquivel mt
--- NOTE | 2020-07-23 07:56 | EKG ---
Test Date: 2020-07-22 Test Time: 13:36:56 Structural Steel Erector: BHAVYA MEASUREMENT RESULTS: Intervals: Rate: 60 FL: 124 QRSD: 90 QT: 396 QTc: 396 [place]: P: 73 FL: 124 QRS: 92 T: 72 INTERPRETIVE STATEMENTS: Normal sinus rhythm Rightward axis Borderline ECG Compared to ECG 05/10/2020 17:04:52 Right-axis deviation now present Electronically Signed On 07-23-20 07:54:16 PROSECUTING ATTORNEY by Fredrick Valdez
== END 2020-07-22 18:00 | disposition home or self-care (01) ==
LOC: ER 13:08
DX: T40.7X2A Poisoning by cannabis (derivatives), intentional self-harm, initial encounter (principal); F31.9 Bipolar disorder, unspecified; Y92.149 Unspecified place in prison as the place of occurrence of the external cause; Z91.048 Other nonmedicinal substance allergy status
CPT/HCPCS: 36415; 80048; 80076; 80307; 80320; 80329; 81003; 85025; 85610; 85730; 93005; 99285

== ENCOUNTER 2020-08-18 22:15 | Emergency (ER) | payer OTHER ==
[2020-08-18 22:37] LABS: Basophils % 0.4 % (0-1.3); Hematocrit 41.2 % (39.6-49.0); Lymphocytes % 30.2 % (15.3-44.8); MPV 9.8 fL (7.6-11.3); RBC Red Blood Cell Count 4.67 M/uL (4.33-5.43)
[2020-08-18 22:46] LABS: Protime INR 1.04
[2020-08-18 23:01] LABS: ALT/SGPT 47 U/L (12-78); AST/SGOT 15 U/L (15-37); Alkaline Phosphatase 51 U/L (45-117); BUN Blood Urea Nitrogen 24 mg/dL (7-18); Bicarbonate 28 mmol/L (21-32); Bilirubin Direct 0.1 mg/dL (0-0.2); Bilirubin Total 0.5 mg/dL (0.2-1.0); Glucose Level 81 mg/dL (74-106); Potassium 3.7 mmol/L (3.5-5.1); Protein, Total 7.6 g/dL (6.4-8.2); Sodium Level 143 mmol/L (136-145)
[2020-08-18 23:49] LABS: Barbiturates NEGATIVE (NEGATIVE); Benzodiazepines NEGATIVE (NEGATIVE); Cocaine NEGATIVE (NEGATIVE); METHAMPHETAM NEGATIVE (NEGATIVE); Methadone NEGATIVE (NEGATIVE); Opiates NEGATIVE (NEGATIVE); Phencyclidine NEGATIVE (NEGATIVE); THC Cannibis NEGATIVE (NEGATIVE)
[2020-08-18 23:54] LABS: Urine Blood NEGATIVE (Negative); Urine Glucose NEGATIVE (Negative); Urine Protein NEGATIVE (NEG); Urine Specific Gravity 1.025 (1.005-1.030); Urine pH 7.5 (5.0-7.0)
--- NOTE | 2020-08-19 00:21 | EDPHYS ---
Physician Documentation [facility] Name: Praneeth Urbina Age: 24 yrs Sex: Male : 1995 Arrival Date: 08/18/2020 Time: 22:17 Bed 3 Private MD: ED Physician Obdulia Smith HPI: 08/18 23:21 This 24 yrs old Male presents to ER via EMS with complaints of xanax overdose.ma2 23:21 The patient presents to the emergency department took 5 pills of xanax unknown ma2 strength, 1 hour ago,. Severity of symptoms: At their worst the symptoms were very mild in the emergency department the symptoms have resolved. The patient has not experienced similar symptoms in the past. Historical: - Allergies: 22:22 Iodine; bb - Home Meds: 22:22 None [Active]; bb - PMHx: 22:22 Bipolar disorder; bb - PSHx: 22:22 None; bb - Immunization history:: Adult Immunizations up to date, Adult Immunizations up to date. - Social history:: Smoking status: Patient reports the use of cigarette tobacco products, denies chronic smoking, but will smoke occasionally, Patient uses alcohol, occasionally. street drugs, Smoking status: Patient denies any tobacco usage or history of. - Family history:: not pertinent. ROS: 23:21 Constitutional: Negative for fever, chills, and weight loss. ma2 23:21 All other systems are negative. Exam: 23:21 Constitutional: This is a well developed, well nourished patient who is awake, alert, ma2 and in no acute distress. Head/Face: Normocephalic, atraumatic. Eyes: Pupils equal round and reactive to light, extra-ocular motions intact. Lids and lashes normal. Conjunctiva and sclera are non-icteric and not injected. Cornea within normal limits. Periorbital areas with no swelling, redness, or edema. ENT: Nares patent. No nasal discharge, no septal abnormalities noted. Tympanic membranes are normal and external auditory canals are clear. Oropharynx with no redness, swelling, or masses, exudates, or evidence of obstruction, uvula midline. Mucous membranes moist. Neck: Trachea midline, no thyromegaly or masses palpated, and no cervical lymphadenopathy. Supple, full range of motion without nuchal rigidity, or vertebral point tenderness. No Meningismus. Chest/axilla: Normal chest wall appearance and motion. Nontender with no deformity. No lesions are appreciated. Cardiovascular: Regular rate and rhythm with a normal S1 and S2. No gallops, murmurs, or rubs. Normal PMI, no JVD. No pulse deficits. Respiratory: Lungs have equal breath sounds bilaterally, clear to auscultation and percussion. No rales, rhonchi or wheezes noted. No increased work of breathing, no retractions or nasal flaring. Abdomen/GI: Soft, non-tender, with normal bowel sounds. No distension or tympany. No guarding or rebound. No evidence of tenderness throughout. MS/ Extremity: Pulses equal, no cyanosis. Neurovascular intact. Full, normal range of motion. Neuro: Awake and alert, GCS 15, oriented to person, place, time, and situation. Cranial nerves II-XII grossly intact. Motor strength 5/5 in all extremities. Sensory grossly intact. Cerebellar exam normal. Normal gait. Psych: Awake, alert, with orientation to person, place and time. Behavior, mood, and affect are within normal limits. Vital Signs: 22:20 BP 118 / 58; Pulse 60; Resp 16 S; Temp 98.6(O); Pulse Ox 100% on R/A; Weight 61.23 kg bb (R); Height 6 ft. 0 in. (182.88 cm) (R); Pain 0/10; 08/19 00:23 BP 102 / 62; Pulse 70; Resp 16; Temp 98.6; Pulse Ox 100% on R/A; sg 08/18 22:20 Body Mass Index 18.31 (61.23 kg, 182.88 cm) bb MDM: 08/18 22:20 Patient medically screened. ma2 23:21 Differential diagnosis: Ingestion/exposure to xanax polypharmacy, over medication, ma2 hypoglycemia. Data reviewed: vital signs, nurses notes. 08/19 00:20 Counseling: I had a detailed discussion with the patient and/or guardian regarding: the ma2 historical points, exam findings, and any diagnostic results supporting the discharge/admit diagnosis, the presence of at least one elevated blood pressure reading (>120/80) during this emergency department visit, the need for outpatient follow up. Response to treatment: the patient's symptoms have markedly improved after treatment. 08/18 22:19 Order name: Acetaminophen [facility] 08/18 22:19 Order name: Basic Metabolic Panel pr2 08/18 22:19 Order name: CBC with Diff; Complete Time: 00:20 ma2 08/18 22:19 Order name: ETOH Level; Complete Time: 00:20 ma2 08/18 22:19 Order name: Hepatic Function; Complete Time: 00:20 pr2 08/18 22:19 Order name: PT-INR; Complete Time: 00:20 pr2 08/18 22:19 Order name: Ptt, Activated; Complete Time: 00:20 pr2 08/18 22:19 Order name: Salicylate; Complete Time: 00:20 pr2 08/18 22:19 Order name: Urine Drug Screen; Complete Time: 00:20 ma2 08/18 22:19 Order name: EKG; Complete Time: 22:21 ma2 08/18 22:20 Order name: Acetaminophen Level; Complete Time: 00:20 EDMS 08/18 22:20 Order name: Basic Metabolic Panel; Complete Time: 00:20 EDMS 08/18 23:46 Order name: Urine Dipstick--Ancillary (enter results) 3 08/18 23:47 Order name: Urine Dipstick-Ancillary; Complete Time: 00:20 EDMS 08/18 22:19 Order name: EKG - Nurse/Tech; Complete Time: 23:46 pr2 08/18 22:19 Order name: IV Saline Lock; Complete Time: 22:28 pr2 08/18 22:19 Order name: Labs collected and sent; Complete Time: 22:28 [facility] 08/18 22:19 Order name: Urine Dipstick-Ancillary (obtain specimen); Complete Time: 00:22 ma2 Administered Medications: No medications were administered Disposition: 08/19/20 00:21 Discharged to Home. Impression: Poisoning by benzodiazepines, undetermined. - Condition is Stable. - Discharge Instructions: Benzodiazepine Overdose, Benzodiazepine Withdrawal. - Medication Reconciliation Form, Thank You Letter, Antibiotic Education, Prescription Opioid Use form. - Follow up: Private Physician; When: Tomorrow; Reason: If symptoms return. - Notes: see the longterm psychiatrist for evaluation Signatures: [facility] Aiden Freedman RN RN sg Ballard, Brenda, RN Ness Rosario RN RN ea Alzahri, Mohammad, MD MD ma2 Corrections: (The following items were deleted from the chart) 00:38 00:21 08/19/2020 00:21 Discharged to Home. Impression: Poisoning by benzodiazepines, sg undetermined. Condition is Stable. Discharge Instructions: Benzodiazepine Overdose, Benzodiazepine Withdrawal. Forms are Medication Reconciliation Form, Thank You Letter, Antibiotic Education, Prescription Opioid Use. Follow up: Private Physician; When: Tomorrow; Reason: If symptoms return. ma2
--- NOTE | 2020-08-19 00:21 | ER ---
Nurse's Notes [facility] Name: Praneeth Urbina Age: 24 yrs Sex: Male : 1995 Arrival Date: 08/18/2020 Time: 22:17 Bed 3 Private MD: Diagnosis: Poisoning by benzodiazepines, undetermined Presentation: 08/18 22:20 Chief complaint: EMS states: they were called to [place] for report of pt with bb possible overdose pt was combative on their arrival and he was accompanied by [facility] guards. Coronavirus screen: At this time, the client does not indicate any symptoms associated with coronavirus-19. Ebola Screen: No symptoms or risks identified at this time. Initial Sepsis Screen: Does the patient meet any 2 criteria? No. Patient's initial sepsis screen is negative. Does the patient have a suspected source of infection? No. Patient's initial sepsis screen is negative. Risk Assessment: Do you want to hurt yourself or someone else? Patient reports no desire to harm self or others. Onset of symptoms was August 18, 2020. 22:20 Method Of Arrival: EMS: [facility] bb 22:20 Acuity: MERLE 2 bb 22:21 Ebola Screen: No symptoms or risks identified at this time. ea Historical: - Allergies: 22:22 Iodine; bb - Home Meds: 22:22 None [Active]; bb - PMHx: 22:22 Bipolar disorder; bb - PSHx: 22:22 None; bb - Immunization history:: Adult Immunizations up to date, Adult Immunizations up to date. - Social history:: Smoking status: Patient reports the use of cigarette tobacco products, denies chronic smoking, but will smoke occasionally, Patient uses alcohol, occasionally. street drugs, Smoking status: Patient denies any tobacco usage or history of. - Family history:: not pertinent. Screenin:20 Abuse screen: Denies threats or abuse. Nutritional screening: No deficits noted. ea Tuberculosis screening: No symptoms or risk factors identified. Fall Risk None identified. Assessment: 22:26 General: Appears in no apparent distress. Behavior is calm, cooperative, appropriate ea for age. Pain: Denies pain. Neuro: Level of Consciousness is awake, alert, obeys commands, Oriented to person, place, time, situation. Cardiovascular: Patient's skin is warm and dry. Respiratory: Airway is patent Respiratory effort is even, unlabored, Respiratory pattern is regular, symmetrical. Derm: Skin is pink, warm \T\ dry. 23:41 Reassessment: Patient and/or family updated on plan of care and expected duration. Pain ea level reassessed. Patient is alert, oriented x 3, equal unlabored respirations, skin warm/dry/pink. 08/19 00:20 Reassessment: Patient appears in no apparent distress at this time. Patient and/or sg family updated on plan of care and expected duration. Pain level reassessed. Patient is alert, oriented x 3, equal unlabored respirations, skin warm/dry/pink. pt tolerating PO snacks and gatorade at this time, pt to be dc to [facility] with guards at this time. 00:38 Reassessment: Patient and/or family updated on plan of care and expected duration. Pain ea level reassessed. Patient is alert, oriented x 3, equal unlabored respirations, skin warm/dry/pink. Discharge instruction given to patient and guards, verbalized the understanding of instruction. Pt left ED ambulatory accompanied by [employer] guards. Vital Signs: 08/18 22:20 BP 118 / 58; Pulse 60; Resp 16 S; Temp 98.6(O); Pulse Ox 100% on R/A; Weight 61.23 kg bb (R); Height 6 ft. 0 in. (182.88 cm) (R); Pain 0/10; 08/19 00:23 BP 102 / 62; Pulse 70; Resp 16; Temp 98.6; Pulse Ox 100% on R/A; sg 08/18 22:20 Body Mass Index 18.31 (61.23 kg, 182.88 cm) ED Course: 08/18 22:17 Patient arrived in ED. ea 22:19 Obdulia Smith MD is Attending Physician. maHannah 22:20 Ness Taylor, RN is Primary Nurse. ea 22:20 Arm band placed on. sg 22:21 Patient has correct armband on for positive identification. Placed in gown. Bed in low ea position. 22:22 Triage completed. bb 08/19 00:36 No provider procedures requiring assistance completed. Patient did not have IV access ea during this emergency room visit. Administered Medications: No medications were administered Outcome: 00:21 Discharge ordered by MD. tineo 00:36 Discharged to Intermediate accompanied by virgil roberts 00:36 Condition: stable 00:36 Discharge instructions given to patient, Instructed on discharge instructions, follow up and referral plans. Demonstrated understanding of instructions. 00:38 Patient left the ED. sg Signatures: Aiden Florentino RN Jennifer Song RN Ness Rosario RN RN ea Alzahri, Mohammad, MD MD ma2 Corrections: (The following items were deleted from the chart) 08/18 22:25 22:20 BP 118 / 58; Pulse 60bpm; Resp 16bpm; Spontaneous; Pulse Ox 100% RA; 61.23 kg bb Reported; Height 6 ft. 0 in. Reported; BMI: 18.3; Pain 0/10; bb
[2020-08-19 04:15] VITALS: TEMP 98.6; O2SAT 100
[2020-08-19 04:16] VITALS: BP 102/62
--- NOTE | 2020-08-19 06:44 | EKG ---
Test Date: 2020-08-18 Test Time: 23:43:57 Dam Tender: IZABELLA MEASUREMENT RESULTS: Intervals: Rate: 53 OH: 134 QRSD: 92 QT: 402 QTc: 377 [place]: P: 53 OH: 134 QRS: 79 T: 58 INTERPRETIVE STATEMENTS: Sinus bradycardia Otherwise normal ECG Compared to ECG 07/22/2020 13:36:56 Sinus rhythm no longer present Right-axis deviation no longer present Electronically Signed On 08-19-20 06:43:48 CDT by Fredrick Valdez
== END 2020-08-19 00:38 | disposition home or self-care (01) ==
LOC: ER 22:15
DX: T42.4X1A Poisoning by benzodiazepines, accidental (unintentional), initial encounter (principal); F31.9 Bipolar disorder, unspecified; F17.210 Nicotine dependence, cigarettes, uncomplicated
CPT/HCPCS: 36415; 80048; 80076; 80307; 80320; 80329; 81003; 85025; 85610; 85730; 93005; 99283

== ENCOUNTER 2021-01-11 12:25 | Emergency (ER) | payer OTHER ==
[2021-01-11 12:56] LABS: Urine Blood Negative (Negative); Urine Glucose Negative (Negative); Urine Protein Negative (Negative); Urine Specific Gravity 1.015 (1.005-1.030)
--- NOTE | 2021-01-11 13:29 | RAD REPORT ---
EXAM DESCRIPTION: CT - Head Brain Wo Cont - 01/11/2021 1:09 pm CLINICAL HISTORY: syncope COMPARISON: No comparisons TECHNIQUE: Axial 5 mm thick images of the head were obtained without IV contrast. All CT scans are performed using dose optimization technique as appropriate and may include automated exposure control or mA/KV adjustment according to patient size. FINDINGS: No intracranial hemorrhage, mass, edema or shift of mid-line structures. No acute infarcti on changes seen. No abnormal extra-axial fluid collections. Ventricles are normal. Mastoid air cells and visualized portions of the paranasal sinuses are clear. No acute bony findings. IMPRESSION: Negative non-contrast CT head examination.
--- NOTE | 2021-01-11 13:44 | RAD REPORT ---
EXAM DESCRIPTION: CT - Stone Protocol - 01/11/2021 1:09 pm CLINICAL HISTORY: right flank pain, reports hx of stones, possible syncope COMPARISON: Stone Protocol dated 05/12/2020 TECHNIQUE: Axial 3 mm thick images were obtained without oral or IV contrast. The [id number] span s the entirety of the system including uppermost abdomen and lung bases. All CT scans are performed using dose optimization technique as appropriate and may include automated exposure control or mA/KV adjustment according to patient size. FINDINGS: No hydronephrosis is present and no obstructing ureteral calculi. Left-sided extrarenal pe lvis present. There is a 3 millimeter calcification within the parenchyma of the right kidney. No sendy picious renal masses. Isodense masses and pyelonephritis are not excluded on a stone protocol CT scan . No significant adrenal finding. No urinary bladder suspicious finding. Bladder is contracted. Imaged portions of the liver, spleen and pancreas show no suspicious findings on non-contrast imaging . No gallbladder or biliary tree abnormality identified. No suspicious bowel findings. No appendicitis findings. Moderate stool volume seen throughout the non dilated colon. No hernia, mass or bulky lymphadenopathy noted. No free air, free fluid or inflammatory stranding. No significant bony abnormality. IMPRESSION: No hydronephrosis or obstructing calculi identified. The patient has a 3 millimeter calc ification within the parenchyma of the right mid kidney Isodense masses and pyelonephritis are not excluded on stone protocol technique.
[2021-01-11 14:07] LABS: Absolute Lymphocytes (CBC) 1.2 K/uL (0.7-4.9); Basophils % 0.4 % (0-1.3); Hematocrit 46.2 % (39.6-49.0); Lymphocytes % 31.5 % (15.3-44.8); MPV 9.2 fL (7.6-11.3); RBC Red Blood Cell Count 5.24 M/uL (4.33-5.43)
[2021-01-11 14:10] LABS: Protime INR 1.09
[2021-01-11 14:16] LABS: Barbiturates NEGATIVE (NEGATIVE); Benzodiazepines NEGATIVE (NEGATIVE); Cocaine NEGATIVE (NEGATIVE); METHAMPHETAM NEGATIVE (NEGATIVE); Methadone NEGATIVE (NEGATIVE); Opiates NEGATIVE (NEGATIVE); Phencyclidine NEGATIVE (NEGATIVE); THC Cannibis NEGATIVE (NEGATIVE)
[2021-01-11 14:30] LABS: ALT/SGPT 112 U/L (12-78); AST/SGOT 34 U/L (15-37); Albumin 4.6 g/dL (3.4-5.0); Alkaline Phosphatase 67 U/L (45-117); BUN Blood Urea Nitrogen 22 mg/dL (7-18); Bicarbonate 26 mmol/L (21-32); Bilirubin Direct 0.3 mg/dL (0-0.2); Bilirubin Total 1.2 mg/dL (0.2-1.0); Glucose Level 86 mg/dL (74-106); Potassium 3.9 mmol/L (3.5-5.1); Protein, Total 8.6 g/dL (6.4-8.2); Sodium Level 140 mmol/L (136-145)
--- NOTE | 2021-01-11 15:49 | EDPHYS ---
Physician Documentation [facility] Name: Praneeth Urbina Age: 25 yrs Sex: Male : 1995 Arrival Date: 01/11/2021 Time: 12:34 Bed DIS8 Private MD: ED Physician Abundio Cat HPI: 01/11 14:38 This 25 yrs old Male presents to ER via EMS with complaints of Overdose. rn 14:38 This 25 yrs old Male presents to ER via EMS with complaints of Possible rn overdose. 14:38 The patient presents to the emergency department with a possible poisoning. The patient rn presents to the emergency department with a possible overdose. Context: Method: the patient has a confirmed or suspected ingestion, Time: just prior to arrival, the OD/poisoning occurred at group home. Associated signs and symptoms: Pertinent positives: Right flank pain. Severity of symptoms: At their worst the symptoms were mild in the emergency department the symptoms have improved. It is unknown whether or not the patient has had similar symptoms in the past. The patient has not recently seen a physician. Patient brought in from group home after being found minimally responsive. [facility] guards state possible overdose, possibly ibuprofen but unknown if even took anything. Patient states was upset but does not remember anything that happened. Denies ingesting any drugs or pills. When he woke up and came to somebody told him that he took pills. Patient reports has been having right flank pain but thinks is unconnected to current episode. Historical: - Allergies: 12:39 Iodine; ss - Home Meds: 12:39 None [Active]; ss - PMHx: 12:39 Bipolar disorder; ss - PSHx: 12:39 None; ss - Immunization history:: Adult Immunizations up to date. - Social history:: Smoking status: Patient denies any tobacco usage or history of. - Family history:: not pertinent. - Hospitalizations: : No recent hospitalization is reported. ROS: 14:38 Constitutional: Negative for fever, chills, and weight loss, Eyes: Negative for injury, rn pain, redness, and discharge, Neck: Negative for injury, pain, and swelling, Cardiovascular: Negative for chest pain, palpitations, and edema, Respiratory: Negative for shortness of breath, cough, wheezing, and pleuritic chest pain, Abdomen/GI: Negative for vomiting, diarrhea, and constipation, Back: Negative for injury : Negative for injury, bleeding, discharge, and swelling, MS/Extremity: Negative for injury and deformity, Skin: Negative for injury, rash, and discoloration, Neuro: Negative for headache, weakness, numbness, tingling, and seizure, Psych: Negative for depression, anxiety, suicide ideation, homicidal ideation, and hallucinations. 14:38 All other systems are negative. Exam: 14:36 ECG was reviewed by the Attending Physician. rn 14:38 Constitutional: This is a well developed, well nourished patient who is awake, alert, rn and in no acute distress. Head/Face: Normocephalic, atraumatic. Eyes: Pupils equal round and reactive to light, extra-ocular motions intact. Lids and lashes normal. Conjunctiva and sclera are non-icteric and not injected. Cornea within normal limits. Periorbital areas with no swelling, redness, or edema. ENT: Moist mucous membranes Neck: Trachea midline, no masses palpated, and no cervical lymphadenopathy. Supple, full range of motion without nuchal rigidity, or vertebral point tenderness. No Meningismus. Cardiovascular: Regular rate and rhythm. No pulse deficits. Respiratory: No increased work of breathing, no retractions or nasal flaring. Abdomen/GI: Soft, non-tender Skin: Warm, dry MS/ Extremity: Pulses equal, no cyanosis. Neuro: Awake and alert, GCS 15, oriented to person, place, time, and situation. Cranial nerves II-XII grossly intact. Motor strength 5/5 in all extremities. Sensory grossly intact. Cerebellar exam normal. Vital Signs: 12:37 Pulse 77; Resp 16; Temp 98.7(TE); Pulse Ox 98% on R/A; Pain 0/10; ss 12:40 BP 122 / 76; Pulse 67; kg 16:11 BP 129 / 61; Pulse 61; Resp 16; Pulse Ox 98% on R/A; kg MDM: 12:37 Patient medically screened. rn 15:44 Differential diagnosis: Ingestion/exposure to unknown substance over medication, rn hypoglycemia, Syncope. Data reviewed: vital signs, nurses notes, lab test result(s), EKG, radiologic studies, CT scan, and as a result, I will discharge patient. Data interpreted: gambling monitor: rate is 67 beats/min, rhythm is normal sinus rhythm, regular, with no ectopy, Interpretation: normal rate, normal rhythm, Pulse oximetry: on room air is 98 %. Interpretation: normal. Counseling: I had a detailed discussion with the patient and/or guardian regarding: the historical points, exam findings, and any diagnostic results supporting the discharge/admit diagnosis, lab results, radiology results, the need for outpatient follow up, to return to the emergency department if symptoms worsen or persist or if there are any questions or concerns that arise at home. Response to treatment: the patient's symptoms have markedly improved after treatment, the patient's symptoms have resolved after treatment, the patient's condition has returned to base line, the patient is now symptom free, and as a result, I will discharge patient. Special discussion: I discussed with the patient/guardian in detail that at this point there is no indication for admission to the hospital. It is understood, however, that if the symptoms persist or worsen the patient needs to return immediately for re-evaluation. ED course: No acute abnormalities and CT head/CT abdomen pelvis. No acute abnormalities in toxicologic screen. Specifically Tylenol and salicylate negative. ECG without changes compared to previous. Stable vitals. Has been sitting in chair entire time joking and talking with guards. Normal neuro exam. Will DC back to group home with return precautions. 01/11 12:37 Order name: Acetaminophen; Complete Time: 14:58 rn 01/11 12:37 Order name: Basic Metabolic Panel; Complete Time: 14:58 01/11 12:37 Order name: CBC with Diff; Complete Time: 14:20 01/11 12:37 Order name: ETOH Level; Complete Time: 14:58 01/11 12:37 Order name: Hepatic Function; Complete Time: 14:58 01/11 12:37 Order name: PT-INR; Complete Time: 14:20 01/11 12:37 Order name: Ptt, Activated; Complete Time: 14:20 01/11 12:37 Order name: Salicylate; Complete Time: 15:44 rn 01/11 12:37 Order name: Urine Drug Screen; Complete Time: 14:20 rn 01/11 12:37 Order name: EKG; Complete Time: 12:38 rn 01/11 12:37 Order name: EKG - Nurse/Tech; Complete Time: 13:43 01/11 12:37 Order name: CT Head Brain wo Cont; Complete Time: 13:45 rn 01/11 12:37 Order name: CT Stone Protocol; Complete Time: 13:45 rn 01/11 12:55 Order name: Urine Dipstick-Ancillary; Complete Time: 13:45 EDMS 01/11 12:37 Order name: IV Saline Lock; Complete Time: 12:55 rn 01/11 12:37 Order name: Labs collected and sent; Complete Time: 13:54 rn 01/11 12:37 Order name: Urine Dipstick-Ancillary (obtain specimen); Complete Time: 13:54 rn 01/11 12:46 Order name: Undress patient: Okay to remove cuffs for procedures; Complete Time: 12:55 kg 01/11 13:52 Order name: Labs - recollect needed: recollect all tubes; Complete Time: 13:56 bd EC:36 Rate is 60 beats/min. Rhythm is regular. Right axis deviation noted. QRS is positive in rn lead aVF and negative in lead I. QRS interval is normal. QT interval is normal. No Q waves. T waves are Normal. No ST changes noted. Clinical impression: normal sinus rhythm, RAD, right bundle branch block. No change from previous ECG on July 22, 2020. Interpreted by me. Reviewed by me. Administered Medications: No medications were administered Disposition Summary: 01/11/21 15:47 Discharge Ordered Location: Home rn Problem: new rn Symptoms: have improved rn Condition: Stable rn Diagnosis - Syncope rn - Altered mental status, unspecified - Resolved rn Followup: rn - With: Private Physician - When: As needed - Reason: Recheck today's complaints, Re-evaluation by your physician Discharge Instructions: - Discharge Summary Sheet rn - Syncope rn Forms: - Medication Reconciliation Form rn - Thank You Letter rn - Antibiotic rn social work - Prescription Opioid Use rn Signatures: Dispatcher [employer] EDCA Hillary Nguyễn Roman, MD MD rn Smirch, Shelby, RN RN ss Ca Van RN RN kg Corrections: (The following items were deleted from the chart) 12:37 12:37 Suicide Screening ([place]) ordered. rn rn
--- NOTE | 2021-01-11 15:49 | ER ---
Nurse's Notes [facility] [place] Name: Praneeth Urbina Age: 25 yrs Sex: Male : 1995 Arrival Date: 01/11/2021 Time: 12:34 Bed DIS8 Private MD: Diagnosis: Syncope;Altered mental status, unspecified-Resolved Presentation: 01/11 12:37 Chief complaint: EMS states: took unknown amount of unknown medication about 1-1.5 ss hours ago. [facility] guards report that they overheard it may be ibuprofen. VS WNL. Coronavirus screen: Client denies travel out of the [place] in the last 14 days. Ebola Screen: Patient denies exposure to infectious person. Patient denies travel to an Ebola-affected area in the 21 days before illness onset. Initial Sepsis Screen: Does the patient meet any 2 criteria? No. Patient's initial sepsis screen is negative. Does the patient have a suspected source of infection? No. Patient's initial sepsis screen is negative. Risk Assessment: Do you want to hurt yourself or someone else? Patient reports no desire to harm self or others. Onset of symptoms was January 11, 2021. 12:37 Method Of Arrival: EMS: [facility] 12:37 Acuity: MERLE 2 ss Triage Assessment: 16:11 General: Appears in no apparent distress. Behavior is calm, cooperative, appropriate kg for age, quiet. Pain: Denies pain. Historical: - Allergies: 12:39 Iodine; ss - Home Meds: 12:39 None [Active]; ss - PMHx: 12:39 Bipolar disorder; ss - PSHx: 12:39 None; ss - Immunization history:: Adult Immunizations up to date. - Social history:: Smoking status: Patient denies any tobacco usage or history of. - Family history:: not pertinent. - Hospitalizations: : No recent hospitalization is reported. Screenin:23 Abuse screen: Denies threats or abuse. Denies injuries from another. Nutritional kg screening: No deficits noted. Tuberculosis screening: No symptoms or risk factors identified. Fall Risk None identified. Assessment: 12:39 Reassessment: Pt denies SI/HI at this time, but states he was upset and took the ss unknown medication. Overdose: 16:11 [place] Suicide Severity Screening: "In the past month, have you wished you were kg or wished you could go to sleep and not wake up?" Patient responds "yes." Based off client's responses, additional C-SSRS screening questions required. 16:11 [place] Suicide Severity Screening: "In the past month, have you actually had any kg thoughts of killing yourself?" Patient responds "yes." Based off client's responses, additional C-SSRS screening questions required. Vital Signs: 12:37 Pulse 77; Resp 16; Temp 98.7(TE); Pulse Ox 98% on R/A; Pain 0/10; ss 12:40 BP 122 / 76; Pulse 67; kg 16:11 BP 129 / 61; Pulse 61; Resp 16; Pulse Ox 98% on R/A; kg ED Course: 12:34 Patient arrived in ED. ss 12:34 Abundio Cat MD is Attending Physician. rn 12:39 Triage completed. ss 12:39 Arm band placed on right wrist. ss 12:55 CT Head Brain wo Cont Sent. kg 12:55 CT Stone Protocol Sent. kg 12:55 Urine Dipstick-Ancillary Sent. kg 12:55 Urine Drug Screen Sent. kg 12:56 Maintain EMS IV. Dressing intact. Good blood return noted. Site clean \\T\\ dry. Gauge \\T\\ kg site: Right AC. 13:09 CT Head Brain wo Cont In Process Unspecified. EDMS 13:09 CT Stone Protocol In Process Unspecified. EDMS 15:23 Patient has correct armband on for positive identification. kg 15:23 No provider procedures requiring assistance completed. kg 16:12 IV discontinued, intact, bleeding controlled, No redness/swelling at site. Pressure kg dressing applied. Administered Medications: No medications were administered Outcome: 15:47 Discharge ordered by . rn 16:12 Discharged to home [facility] kg 16:12 Condition: improved 16:12 Discharge instructions given to patient, [facility] guard Instructed on discharge instructions, follow up and referral plans. Demonstrated understanding of instructions, follow-up care. 16:13 Patient left the ED. kg Signatures: Dispatcher [employer] EDAbundio Glass MD MD rn Smirch, Shelby, RN RN ss Graham, Kristen, RN RN kg
[2021-01-11 16:18] VITALS: TEMP 98.7; O2SAT 98
[2021-01-11 16:21] VITALS: BP 129/61
--- NOTE | 2021-01-11 16:23 | EKG ---
Test Date: 2021-01-11 Test Time: 13:41:48 Performance Improvement Analyst: TREVON MEASUREMENT RESULTS: Intervals: Rate: 60 CT: 140 QRSD: 98 QT: 406 QTc: 406 [place]: P: 77 CT: 140 QRS: 90 T: 78 INTERPRETIVE STATEMENTS: Normal sinus rhythm Possible Left atrial enlargement Rightward axis Incomplete right bundle branch block Borderline ECG Compared to ECG 08/18/2020 23:43:57 Right-axis deviation now present Incomplete right bundle-branch block now present Sinus bradycardia no longer present Electronically Signed On 01-11-21 16:22:42 CDT by Fredrick Valdez
== END 2021-01-11 16:13 | disposition home or self-care (01) ==
LOC: ER 12:25
DX: R55 Syncope and collapse (principal); R10.9 Unspecified abdominal pain; Z91.048 Other nonmedicinal substance allergy status
CPT/HCPCS: 36415; 70450; 74176; 76377; 80048; 80076; 80307; 80320; 80329; 81003; 85025; 85610; 85730; 93005; 99283